=== PATIENT | female | born 1965 | race Caucasian/White ===

== ENCOUNTER → 2018-06-10 | Outpatient (REF) | payer OTHER ==
[2018-06-10 18:04] LABS: BASO # 0.1 10^3/uL (0.0-0.2); BASO % 0.6 % (0.0-1.0); EOS # 0.3 10^3/uL (0.0-0.50); EOS % 3.2 % (0.0-3.0); HEMATOCRIT 39.8 % (36.0-47.0); IMMATURE GRANULOCYTE % 0.5 % (0-3.0); LYMPH % 35.8 % (24.0-44.0); MEAN CORPUSCULAR HEMOGLOBIN 30.7 pg (27.0-33.0); MEAN CORPUSCULAR HGB CONC 32.7 g/dl (32.0-36.5); MEAN CORPUSCULAR VOLUME 94.1 fl (80.0-96.0); MONO # 0.6 10^3/uL (0.0-0.8); MONO % 7.2 % (0.0-5.0); NEUTROPHILS # 4.4 10^3/uL (1.8-7.7); NEUTROPHILS % 52.7 % (36.0-66.0); PLATELET COUNT, AUTOMATED 307 10^3/uL (150-450); RED BLOOD COUNT 4.23 10^6/uL (4.00-5.40); WHITE BLOOD COUNT 8.4 10^3/uL (4.0-10.0)
[2018-06-10 18:17] LABS: ALBUMIN 3.7 GM/DL (3.2-5.2); ALBUMIN/GLOBULIN RATIO 1.19 (1.00-1.93); ALKALINE PHOSPHATASE 114 U/L (45-117); ALT/SGPT 20 U/L (12-78); ANION GAP 8 MEQ/L (8-16); AST/SGOT 10 U/L (7-37); BILIRUBIN,TOTAL 0.4 MG/DL (0.2-1.0); BLOOD UREA NITROGEN 13 MG/DL (7-18); CALCIUM LEVEL 8.7 MG/DL (8.5-10.1); CARBON DIOXIDE LEVEL 24 MEQ/L (21-32); CHLORIDE LEVEL 108 MEQ/L (98-107); CREATININE FOR GFR 0.66 MG/DL (0.55-1.30); FREE T4 1.03 NG/DL (0.76-1.46); GLOMERULAR FILTRATION RATE > 60.0 (>51); GLUCOSE, FASTING 81 MG/DL (70-100); POTASSIUM SERUM 4.3 MEQ/L (3.5-5.1); PTH INTACT 63.4 PG/ML (18.5-88.0); SODIUM LEVEL 140 MEQ/L (136-145); THYROID STIMULATING HORMONE 0.832 uIU/ML (0.358-3.740); TOTAL 25(OH) VITAMIN D 30.5 NG/ML (30.0-100.0); TOTAL PROTEIN 6.8 GM/DL (6.4-8.2)
[2018-06-10 18:19] LABS: VITAMIN B12 LEVEL 467 PG/ML (247-911)
== END ==
LOC: M SFHCPLAZ 15:12
DX: E55.9 Vitamin D deficiency, unspecified (principal); D75.89 Other specified diseases of blood and blood-forming organs

== ENCOUNTER → 2018-08-02 | Outpatient (CLI) | payer OTHER ==
--- NOTE | 2018-08-02 13:56 | REPMRS ---
Patient History The patient states she has not had a clinical breast exam in over a year. No known family history of cancer. Digital Woman Screen Mammo: August 02, 2018 - Exam #: [id number] Bilateral CC and MLO view(s) were taken. Technologist: Johana Houston, Technologist Prior study comparison: April 10, 2015, digital woman screen mammo performed at [facility]. February 16, 2014, digital woman screen mammo performed at [facility]. February 10, 2013, digital woman screen mammo performed at [facility]. FINDINGS: The breast tissue is extremely dense which could obscure a lesion on mammography. There is an extremely dense symmetrical pattern of residual fibroglandular tissue. There has been no change in the appearance of the mammogram from the previous studies. There is no interval development of dominant mass, archetectural distortion, or microcalcific cluster suggestive of malignancy. 3-D tomosynthesis shows no additional findings. Assessment: BI-RADS/ACR category 1 mammogram. Negative. Recommendation Routine screening mammogram of both breasts in 1 year (for women over age 40). This patient's Lifetime Breast Cancer RIsk is estimated at 9.0 %. This mammogram was interpreted with the aid of an FDA-approved computer-aided dectection system. Electronically Signed By: Solis Colon MD 08/02/18 2054
--- NOTE | 2018-08-08 14:40 | DEXA ---
AP SPINE L1 - L4 1.182 -0.1 0.4 LT FEMUR TOTAL 1.051 0.3 0.9 LT NECK 0.981 -0.4 0.4 RT FEMUR TOTAL 1.117 0.9 1.4 RT NECK 0.994 -0.3 0.5 TOTAL BODY TOTAL OTHER COMMENTS: Normal bone densitometry of the spine and hips. FOLLOW-UP: Recommendation for the next bone density exam: 5 years. CAROLYN
== END ==
LOC: M WHC 11:59
PROVIDERS: ATTEND Family Medicine
DX: Z12.31 Encounter for screening mammogram for malignant neoplasm of breast (principal); E28.39 Other primary ovarian failure

== ENCOUNTER 2018-11-18 07:41 | Day surgery (SDC) | payer OTHER ==
[~2018-11-18] VITALS: Ht 162.6 cm; Wt 64.3 kg
[~2018-11-18 07:41] MED LIST: BREO1INH3 INH; LIDOCAINE 2% INJ 100 MG/5 ML SDV (FOR ANES.) As Ordered ONE; PROPOFOL 200 MG/20 ML VIAL As Ordered ONE
[2018-11-18] MEDS ORDERED: NS 1,000 ML IV ONE (09:00)
[2018-11-18] MEDS ORDERED: PROPOFOL 200 MG/20 ML VIAL As Ordered ONE (09:47)
--- NOTE | 2018-11-18 10:19 | ROOR ---
Patient Name: Giovanna Marina Procedure Date: 11/18/2018 9:26 AM Date of : 1965 Age: 53 Room: [facility] Gender: Female Note Status: Finalized Procedure: Colonoscopy Indications: Screening for colorectal malignant neoplasm Providers: Flip Livingston MD Referring MD: Yo Woo MD Requesting Provider: Medicines: Monitored Anesthesia Care Complications: No immediate complications. Procedure: Pre-Anesthesia Assessment: - Prior to the procedure, a History and Physical was performed, and patient medications and allergies were reviewed. The patient is competent. The risks and benefits of the procedure and the sedation options and risks were discussed with the patient. All questions were answered and informed consent was obtained. Patient identification and proposed procedure were verified by the physician, the nurse and the anesthesiologist in the procedure room. Mental Status Examination: alert and oriented. Airway Examination: normal oropharyngeal airway and neck mobility. Respiratory Examination: clear to auscultation. CV Examination: normal. Prophylactic Antibiotics: The patient does not require prophylactic antibiotics. Prior Anticoagulants: The patient has taken no previous anticoagulant or antiplatelet agents. ASA Grade Assessment: II - A patient with mild systemic disease. After reviewing the risks and benefits, the patient was deemed in satisfactory condition to undergo the procedure. The anesthesia plan was to use monitored anesthesia care (MAC). Immediately prior to administration of medications, the patient was re-assessed for adequacy to receive sedatives. The heart rate, respiratory rate, oxygen saturations, blood pressure, adequacy of pulmonary ventilation, and response to care were monitored throughout the procedure. The physical status of the patient was re-assessed after the procedure. The Colonoscope was introduced through the anus and advanced to the terminal ileum, with identification of the appendiceal orifice and IC valve. The colonoscopy was performed without difficulty. The patient tolerated the procedure well. The quality of the bowel preparation was good. The terminal ileum, ileocecal valve, appendiceal orifice, and rectum were photographed. Scope insertion time was 4 minutes. Scope withdrawal time was 12 minutes. The total duration of the procedure was 16 minutes. Findings: The perianal and digital rectal examinations were normal. The terminal ileum appeared normal. A 20 mm polyp was found in the ascending colon. The polyp was semi-sessile. The polyp was removed with a hot snare. Resection and retrieval were complete. Verification of patient identification for the specimen was done by the physician and nurse using the patient's name, date and medical record number. Estimated blood loss was minimal. To close a defect after polypectomy, two hemostatic clips were successfully placed. There was no bleeding at the end of the procedure. A 8 mm polyp was found in the recto-sigmoid colon. The polyp was sessile. The polyp was removed with a cold snare. Resection and retrieval were complete. Non-bleeding external and internal hemorrhoids were found during retroflexion. The hemorrhoids were large. Impression: - The examined portion of the ileum was normal. - One 20 mm polyp in the ascending colon, removed with a hot snare. Resected and retrieved. Clips were placed. - One 8 mm polyp at the recto-sigmoid colon, removed with a cold snare. Resected and retrieved. - Non-bleeding external and internal hemorrhoids. Recommendation: - Patient has a contact number available for emergencies. The signs and symptoms of potential delayed complications were discussed with the patient. Return to normal activities tomorrow. Written discharge instructions were provided to the patient. - High fiber diet. - Continue present medications. - Preparation H suppository: Insert rectally daily for 5 days. - Await pathology results. - Repeat colonoscopy in 3 years for surveillance based on pathology results. - Based on the biopsy results you will receive a phone call from GI clinic in 2-3 weeks to review the pathology results AND/OR your results will be faxed to your Primary care physician. - Return to primary care physician. Flip Livingston MD Flip Livingston MD 11/18/2018 10:19:10 AM Electronically signed by Flip Livingston MD Number of Addenda: 0 Note Initiated On: 11/18/2018 9:26 AM Estimated Blood Loss: Estimated blood loss was minimal.
[2018-11-18 10:31] VITALS: BP 129/64
== END 2018-11-18 10:33 | disposition home or self-care (01) ==
LOC: M OPP 07:41
PROVIDERS: ATTEND Internal Medicine Gastroenterology
DX: D12.2 Benign neoplasm of ascending colon (principal); K62.1 Rectal polyp; K64.8 Other hemorrhoids; Z12.11 Encounter for screening for malignant neoplasm of colon

== ENCOUNTER → 2018-12-05 | Outpatient (REF) | payer OTHER ==
[~2018-12-05] MED LIST changes: -LIDOCAINE 2% INJ 100 MG/5 ML SDV (FOR ANES.) As Ordered ONE; -PROPOFOL 200 MG/20 ML VIAL As Ordered ONE
[2018-12-05 13:26] LABS: BASO # 0.1 10^3/uL (0.0-0.2); BASO % 0.6 % (0.0-1.0); EOS # 0.2 10^3/uL (0.0-0.50); EOS % 1.9 % (0.0-3.0); HEMATOCRIT 42.9 % (36.0-47.0); HEMOGLOBIN 13.7 g/dl (12.0-15.5); LYMPH # 2.4 10^3/uL (1.5-4.5); LYMPH % 26.6 % (24.0-44.0); MEAN CORPUSCULAR HEMOGLOBIN 29.3 pg (27.0-33.0); MEAN CORPUSCULAR HGB CONC 31.9 g/dl (32.0-36.5); MEAN CORPUSCULAR VOLUME 91.9 fl (80.0-96.0); MONO # 0.6 10^3/uL (0.0-0.8); MONO % 6.7 % (0.0-5.0); NEUTROPHILS # 5.8 10^3/uL (1.8-7.7); NEUTROPHILS % 63.8 % (36.0-66.0); PLATELET COUNT, AUTOMATED 333 10^3/uL (150-450); RED BLOOD COUNT 4.67 10^6/uL (4.00-5.40); WHITE BLOOD COUNT 9.1 10^3/uL (4.0-10.0)
[2018-12-05 13:39] LABS: ALBUMIN 4.1 GM/DL (3.2-5.2); ALT/SGPT 22 U/L (12-78); BILIRUBIN,TOTAL 0.5 MG/DL (0.2-1.0); BLOOD UREA NITROGEN 10 MG/DL (7-18); C REACTIVE PROTEIN QUANTITATIV < 0.30 MG/DL (0.00-0.30); CARBON DIOXIDE LEVEL 25 MEQ/L (21-32); CHLORIDE LEVEL 108 MEQ/L (98-107); CHOLESTEROL LEVEL 190 MG/DL (<200); CHOLESTEROL RISK RATIO 2.602 (<5); CREATININE FOR GFR 0.66 MG/DL (0.55-1.30); GLOMERULAR FILTRATION RATE > 60.0 (>51); GLUCOSE, FASTING 91 MG/DL (70-100); HDL CHOLESTEROL 73 MG/DL (>40); LDL CHOLESTEROL 100 MG/DL (<100); NON-HDL-C 117 MG/DL; POTASSIUM SERUM 4.5 MEQ/L (3.5-5.1); SODIUM LEVEL 139 MEQ/L (136-145); TOTAL PROTEIN 7.2 GM/DL (6.4-8.2); TRIGLYCERIDES LEVEL 85 MG/DL (<150)
[2018-12-06 10:53] LABS: ALBUMIN 4.23 GM/DL (3.29-5.55); ALBUMIN % 58.8 % (55.8-66.1); ALPHA-1-GLOBULIN % 4.4 % (2.9-4.9); ALPHA-1-GLOBULINS 0.32 GM/DL (0.17-0.41); ALPHA-2-GLOBULINS 0.86 GM/DL (0.42-0.99); ALPHA-2-GLOBULINS % 11.9 % (7.1-11.8); BETA-1-GLOBULINS 0.57 GM/DL (0.28-0.60); BETA-1-GLOBULINS % 7.9 % (4.7-7.2); BETA-2-GLOBULINS 0.35 GM/DL (0.19-0.55); BETA-2-GLOBULINS % 4.8 % (3.2-6.5); GAMMA GLOBULIN % 12.2 % (11.1-18.8)
[2018-12-06 10:54] LABS: GAMMA GLOBULINS 0.88 GM/DL (0.65-1.58)
== END ==
LOC: M SFHCPLAZ 10:25
PROVIDERS: ATTEND Family Medicine
DX: D75.89 Other specified diseases of blood and blood-forming organs (principal); F17.200 Nicotine dependence, unspecified, uncomplicated; E55.9 Vitamin D deficiency, unspecified

== ENCOUNTER → 2021-12-31 | Outpatient (REF) | payer OTHER ==
[~2021-12-31] MED LIST changes: +XELO150T PO
== END ==
LOC: M SFHCPLAZ 17:25
PROVIDERS: ATTEND Nurse Practitioner Family
DX: Z12.4 Encounter for screening for malignant neoplasm of cervix (principal)
CPT/HCPCS: 87624; G0123

== ENCOUNTER → 2022-01-15 | Outpatient (CLI) | payer OTHER | LOC: M WHC 12:43 | PROVIDERS: ATTEND Family Medicine | DX: R92.2 Inconclusive mammogram (principal) ==

== ENCOUNTER → 2022-01-28 | Outpatient (CLI) | payer OTHER | LOC: M WHC 12:14 | PROVIDERS: ATTEND Family Medicine | DX: R92.2 Inconclusive mammogram (principal) | CPT/HCPCS: 77065; G0279 ==

== ENCOUNTER → 2022-02-26 | Outpatient (CLI) | payer OTHER ==
[~2022-02-26] MED LIST changes: +ADV250INH INH; +LISI10TA22 PO; +RA N1TAB PO; +VITA100093 PO; +[UNRECOGNIZED DRUG - OTHER] PO
== END ==
LOC: M LABSMTC 09:20
PROVIDERS: ATTEND Anesthesiology
DX: Z01.818 Encounter for other preprocedural examination (principal); Z11.52 Encounter for screening for COVID-19

== ENCOUNTER 2022-03-03 06:56 | Day surgery (SDC) | payer OTHER ==
[~2022-03-03] VITALS: Ht 167.6 cm; Wt 54.4 kg
[~2022-03-03 06:56] MED LIST changes: +LIDOCAINE 2% 100MG/5ML SDV (FOR ANES.) As Ordered ONE; +NS 1,000 ML IV ONE; +propofoL 200 MG/20 ML VIAL As Ordered ONE
[2022-03-03] MEDS ORDERED: ePHEDrine SULFATE 25 MG/5 ML(5MG/ML) SYRINGE As Ordered ONE (09:27)
[2022-03-03 10:12] VITALS: BP 128/83
== END 2022-03-03 10:22 | disposition home or self-care (01) ==
LOC: M OPP 06:56
PROVIDERS: ATTEND Internal Medicine Gastroenterology
DX: Z86.010 Personal history of colon polyps (principal); D12.6 Benign neoplasm of colon, unspecified; K57.30 Diverticulosis of large intestine without perforation or abscess without bleeding; K64.8 Other hemorrhoids; I10 Essential (primary) hypertension; J45.909 Unspecified asthma, uncomplicated; F17.210 Nicotine dependence, cigarettes, uncomplicated; Z79.899 Other long term (current) drug therapy; Z86.19 Personal history of other infectious and parasitic diseases

== ENCOUNTER 2022-11-14 11:13 | Emergency (ER) | payer OTHER ==
[~2022-11-14] VITALS: Ht 162.6 cm; Wt 53.5 kg
[~2022-11-14 11:13] MED LIST changes: -LIDOCAINE 2% 100MG/5ML SDV (FOR ANES.) As Ordered ONE; -NS 1,000 ML IV ONE; -propofoL 200 MG/20 ML VIAL As Ordered ONE
[2022-11-14] MEDS ORDERED: LIDOCAINE 5% (LIDODERM) PATCH TD ONE (12:15)
[2022-11-14] MEDS ORDERED: KETOROLAC 30 MG/ML 1ML VIAL IM ONE (12:15)
[2022-11-14] MEDS ORDERED: CYCLOBENZAPRINE 10MG TABLET PO ONE (12:15)
[2022-11-14] MEDS ORDERED: NAPR-837 PO (12:48)
[2022-11-14] MEDS ORDERED: CYCL-707 PO (12:48)
[2022-11-14] MEDS ORDERED: LIDO5DIS41 TD (12:48)
[2022-11-14 13:05] VITALS: BP 154/79
== END 2022-11-14 13:05 | disposition home or self-care (01) ==
LOC: M ED 11:13
DX: M54.50 Low back pain, unspecified (principal); X50.0XXA Overexertion from strenuous movement or load, initial encounter; J45.909 Unspecified asthma, uncomplicated; I10 Essential (primary) hypertension; F10.10 Alcohol abuse, uncomplicated; F17.200 Nicotine dependence, unspecified, uncomplicated; Z79.811 Long term (current) use of aromatase inhibitors; Z79.899 Other long term (current) drug therapy
CPT/HCPCS: 72110; 72220; 96372; 99283; J1885

== ENCOUNTER → 2023-01-29 | Outpatient (CLI) | payer OTHER ==
[~2023-01-29] MED LIST changes: +CYCL-707 PO; +LIDO5DIS41 TD; +NAPR-837 PO
== END ==
LOC: M WHC 16:20
PROVIDERS: ATTEND Family Medicine
DX: Z12.31 Encounter for screening mammogram for malignant neoplasm of breast (principal)

== ENCOUNTER → 2023-09-03 | Outpatient (REF) | payer SELFPAY | LOC: M SFHCPLAZ 18:20 | PROVIDERS: ATTEND Family Medicine | DX: I10 Essential (primary) hypertension (principal) ==

== ENCOUNTER → 2024-02-07 | Outpatient (CLI) | payer SELFPAY ==
[2024-02-07 12:14] LABS: ALKALINE PHOSPHATASE 99 U/L (46-116); ALT/SGPT 40 U/L (7.0-40); AST/SGOT 18 U/L (<34); BILIRUBIN,TOTAL 0.7 MG/DL (0.3-1.2); BLOOD UREA NITROGEN 14 MG/DL (9-23); CALCIUM LEVEL 9.9 MG/DL (8.5-10.1); CARBON DIOXIDE LEVEL 29 MMOL/L (20-31); CHLORIDE LEVEL 108 MMOL/L (98-107); CREATININE FOR GFR 0.53 MG/DL (0.55-1.30); GLOMERULAR FILTRATION RATE > 60.0 (>51); GLUCOSE, FASTING 76 MG/DL (60-100); POTASSIUM SERUM 4.9 MMOL/L (3.5-5.1); SODIUM LEVEL 140 MMOL/L (136-145); TOTAL PROTEIN 6.7 G/DL (5.7-8.2)
== END ==
LOC: M LAB 08:41
PROVIDERS: ATTEND Family Medicine
DX: I10 Essential (primary) hypertension (principal)

== ENCOUNTER → 2024-10-23 | Outpatient (CLI) | payer OTHER ==
[~2024-10-23] MED LIST changes: -ADV250INH INH; +ADVA1AER9 INH
== END ==
LOC: M WHC 13:33
PROVIDERS: ATTEND Nurse Practitioner Family
DX: Z12.31 Encounter for screening mammogram for malignant neoplasm of breast (principal); R92.333 Mammographic heterogeneous density, bilateral breasts